=== PATIENT | female | born 1950 | race Caucasian/White ===

== ENCOUNTER 2018-10-09 15:56 | Inpatient (IN) | payer OTHER ==
[~2018-10-09] VITALS: Ht 167.6 cm; Wt 119.3 kg
[2018-10-09 16:34] VITALS: Ht 167.6 cm; Wt 119.3 kg
[2018-10-09 19:17] LABS: PLATELET COUNT 245 x10^3mcL (130-400); RED CELL DISTRIBUTION WIDTH 13.6 % (11.5-14.5)
[2018-10-09 19:18] LABS: CALCIUM 8.5 mg/dL (8.5-10.1); CARBON DIOXIDE 24.9 mmol/L (21-32); CHLORIDE SERUM 98 mmol/L (98-107); CREATININE SERUM 0.8 mg/dL (0.6-1.0); GFR1 > 60 mL/min; GLUCOSE SERUM 158 mg/dL (74-106); POTASSIUM SERUM 3.6 mmol/L (3.5-5.1); SODIUM SERUM 135 mmol/L (136-145)
[2018-10-09 19:22] LABS: ALBUMIN 3.6 g/dL (3.4-5.0); ALKALINE PHOSPHATASE 60 U/L (46-116); ALT/SGPT 26 U/L (14-59); AST/SGOT 18 U/L (15-37); CHOLESTEROL 145 mg/dL (<200); HDL CHOLESTEROL 39 mg/dL (40-60); TOTAL PROTEIN, SERUM 7.4 g/dL (6.4-8.2)
[2018-10-09 19:59] LABS: BAND NEUTROPHIL 10 % (0-10); BASOPHIL 0 % (0-2); MONOCYTE 8 % (0-7); SEGMENTED NEUTROPHILS 80 % (37-75); rbc morphology (normal/abnorm) NORMAL (NORMAL)
[2018-10-09 20:00] LABS: PLATELET MORPHOLOGY PLATELETS NORMAL
[2018-10-09] MEDS ORDERED: TOPROL XL200 MG PO (20:29)
[2018-10-09] MEDS ORDERED: EPZICOM1 TAB (20:29)
[2018-10-09 23:29] VITALS: BP 146/94
[2018-10-09 23:37] LABS: UA SPECIFIC GRAVITY <=1.005 (1.005-1.035); microscopic required? YES; urine erythrocyte 3+ (NEGATIVE)
[2018-10-10 00:29] LABS: CHOLESTEROL/HDL RATIO 3.9; MAGNESIUM 1.7 mg/dL (1.8-2.4); PHOSPHOROUS 3.1 mg/dL (2.5-4.9)
[2018-10-10 00:36] VITALS: BP 135/81
[2018-10-10 05:38] VITALS: BP 106/65
[2018-10-10 07:48] LABS: PLATELET COUNT 240 x10^3mcL (130-400); RED CELL DISTRIBUTION WIDTH 14.1 % (11.5-14.5)
[2018-10-10 07:59] LABS: CALCIUM 8.6 mg/dL (8.5-10.1); CARBON DIOXIDE 25.4 mmol/L (21-32); CHLORIDE SERUM 102 mmol/L (98-107); CREATININE SERUM 0.7 mg/dL (0.6-1.0); GFR1 > 60 mL/min; GLUCOSE SERUM 201 mg/dL (74-106); PHOSPHOROUS 2.7 mg/dL (2.5-4.9); POTASSIUM SERUM 3.7 mmol/L (3.5-5.1); SODIUM SERUM 137 mmol/L (136-145)
[2018-10-10 09:56] VITALS: BP 114/64
[2018-10-10 13:00] VITALS: BP 128/83
[2018-10-10 13:12] LABS: BAND NEUTROPHIL 18 % (0-10); BASOPHIL 0 % (0-2); METAMYELOCTE 2 % (0-2); MONOCYTE 4 % (0-7); SEGMENTED NEUTROPHILS 74 % (37-75); rbc morphology (normal/abnorm) NORMAL (NORMAL)
[2018-10-10 13:13] LABS: PLATELET MORPHOLOGY PLATELETS NORMAL
[2018-10-10 17:15] VITALS: BP 135/62
[2018-10-10 21:17] VITALS: BP 115/74
[2018-10-11 05:55] VITALS: BP 138/90
[2018-10-11 06:47] LABS: PLATELET COUNT 285 x10^3mcL (130-400); RED CELL DISTRIBUTION WIDTH 14.4 % (11.5-14.5)
[2018-10-11 06:58] LABS: CALCIUM 9.1 mg/dL (8.5-10.1); CARBON DIOXIDE 27.9 mmol/L (21-32); CHLORIDE SERUM 104 mmol/L (98-107); CREATININE SERUM 0.6 mg/dL (0.6-1.0); GFR1 > 60 mL/min; GLUCOSE SERUM 158 mg/dL (74-106); MAGNESIUM 2.3 mg/dL (1.8-2.4); POTASSIUM SERUM 4.2 mmol/L (3.5-5.1); SODIUM SERUM 140 mmol/L (136-145)
[2018-10-11 10:36] VITALS: BP 125/75
[2018-10-11 10:50] LABS: BAND NEUTROPHIL 15 % (0-10); BASOPHIL 0 % (0-2); METAMYELOCTE 2 % (0-2); MONOCYTE 3 % (0-7); PLATELET MORPHOLOGY PLATELETS NORMAL; SEGMENTED NEUTROPHILS 74 % (37-75)
[2018-10-11 10:53] LABS: rbc morphology (normal/abnorm) NORMAL (NORMAL)
[2018-10-11 14:20] VITALS: BP 128/70
[2018-10-11 17:57] VITALS: BP 143/85
[2018-10-11 19:20] VITALS: BP 149/85
[2018-10-12] VITALS (7 sets, daily range): BP systolic 145–174; BP diastolic 75–99
[2018-10-12 07:16] LABS: BASOPHIL % 0.1 % (0-2); PLATELET COUNT 318 x10^3mcL (130-400); RED CELL DISTRIBUTION WIDTH 13.4 % (11.5-14.5)
[2018-10-12 08:57] LABS: CARBON DIOXIDE 27.7 mmol/L (21-32); CHLORIDE SERUM 105 mmol/L (98-107); CREATININE SERUM 0.6 mg/dL (0.6-1.0); GFR1 > 60 mL/min; GLUCOSE SERUM 135 mg/dL (74-106); POTASSIUM SERUM 4.7 mmol/L (3.5-5.1); SODIUM SERUM 142 mmol/L (136-145)
[2018-10-13 05:36] VITALS: BP 153/88
[2018-10-13 07:24] VITALS: BP 153/88
[2018-10-13 07:40] LABS: BASOPHIL % 0.2 % (0-2); CALCIUM 8.7 mg/dL (8.5-10.1); CARBON DIOXIDE 27.9 mmol/L (21-32); CHLORIDE SERUM 105 mmol/L (98-107); CREATININE SERUM 0.5 mg/dL (0.6-1.0); GFR1 > 60 mL/min; GLUCOSE SERUM 115 mg/dL (74-106); PLATELET COUNT 337 x10^3mcL (130-400); POTASSIUM SERUM 4.2 mmol/L (3.5-5.1); RED CELL DISTRIBUTION WIDTH 14.5 % (11.5-14.5); SODIUM SERUM 138 mmol/L (136-145)
[2018-10-13] MEDS ORDERED: MEDDP PO (09:04)
[2018-10-13] MEDS ORDERED: LAC PO (09:05)
[2018-10-13] MEDS ORDERED: LEVAQUIN750 MG PO (09:05)
[2018-10-13] MEDS ORDERED: TAM75 PO (09:05)
[2018-10-13] MEDS ORDERED: VENTOLIN H0.09 MG/A1 INH (09:06)
[2018-10-13] MEDS ORDERED: QVAR REDIHALE10.6 G1 IH (09:07)
[2018-10-13 10:06] VITALS: BP 143/90
[2018-10-13 13:18] VITALS: BP 143/90
[2018-10-13 13:21] VITALS: BP 173/94
== END 2018-10-13 14:54 | disposition home or self-care (01) | DRG 871 ==
LOC: ED 15:56 → DU 23:20
PROVIDERS: Emergency Medicine; General Practice; ADMIT Internal Medicine
PROC: 5A09357 Assistance with Respiratory Ventilation, Less than 24 Consecutive Hours, Continuous Positive Airway Pressure (ICD-10-PCS; principal; 2018-10-12)
PROC: 5A09357 Assistance with Respiratory Ventilation, Less than 24 Consecutive Hours, Continuous Positive Airway Pressure (ICD-10-PCS; 2018-10-13)
DX: A41.9 Sepsis, unspecified organism (principal); N17.0 Acute kidney failure with tubular necrosis; J96.01 Acute respiratory failure with hypoxia; J10.08 Influenza due to other identified influenza virus with other specified pneumonia; J15.9 Unspecified bacterial pneumonia; Z68.41 Body mass index [BMI] 40.0-44.9, adult; E87.1 Hypo-osmolality and hyponatremia; E83.42 Hypomagnesemia; I16.0 Hypertensive urgency; G47.33 Obstructive sleep apnea (adult) (pediatric); E78.5 Hyperlipidemia, unspecified; I10 Essential (primary) hypertension; E03.9 Hypothyroidism, unspecified; E66.9 Obesity, unspecified; I27.20 Pulmonary hypertension, unspecified; E78.00 Pure hypercholesterolemia, unspecified; I08.1 Rheumatic disorders of both mitral and tricuspid valves; R31.9 Hematuria, unspecified; I71.4 Abdominal aortic aneurysm, without rupture; R91.8 Other nonspecific abnormal finding of lung field; Z87.891 Personal history of nicotine dependence; Z90.721 Acquired absence of ovaries, unilateral; Z90.710 Acquired absence of both cervix and uterus; Z88.0 Allergy status to penicillin
CPT/HCPCS: 36600; 87804; J0456; J0696; J1644; J1956; J2405; J2920; J2930; J3490; J7030; J7050; J7613; J7626; Q0092; Q9967